=== PATIENT | male | born 1975 | race Caucasian/White ===

== ENCOUNTER 2017-04-02 01:17 | Emergency (ER) | payer SELFPAY ==
[~2017-04-02] VITALS: Ht 182.9 cm; Wt 73.0 kg
[2017-04-02] MEDS ORDERED: LORAZEPAM 2MG/ML CPJ ONE (01:36)
[2017-04-02] MEDS: LORAZEPAM 2MG/ML CPJ IV ONE (01:41)
[2017-04-02] MEDS: SODIUM CHLORIDE 0.9% 1,000 ML IV ONE (01:46)
[2017-04-02 01:56] LABS: BASOPHILS % 0.6 % (0.0-2.0); HEMATOCRIT. 51.1 % (42.0-52.0); HEMOGLOBIN. 16.9 g/dL (14.0-18.0); LYMPHOCYTES % 36.8 % (20.0-50.0); MEAN CORPUSCULAR VOLUME 96.6 fL (80.0-94.0); MEAN PLATELET VOLUME 9.2 fl (7.4-10.4); MONOCYTES % 8.3 % (2.0-8.0); NEUTROPHILS % 49.3 % (40.0-76.0); PLATELET 243 x1000/uL (130-400); RED BLOOD CELL COUNT 5.29 mill/uL (4.7-6.1); RED CELL DISTRIBUTION WIDTH 12.5 % (11.6-14.6)
[2017-04-02 02:15] LABS: CARBON DIOXIDE 12 mEq/L (21-32); CHLORIDE 103 mEq/L (98-107); ETHANOL BLOOD < 10 mg/dL
[2017-04-02 02:21] LABS: CARBAMAZEPINE < 0.5 ug/mL (4-12); PHENOBARBITAL < 2.1 ug/mL (15.0-40.0); VALPROIC ACID < 3.0 ug/mL (50-100)
[2017-04-02] MEDS: LEVETIRACETAM 1,000 MG in SODIUM CHLORIDE 0.9% 100 ML IV ONE (02:57)
[2017-04-02 02:58] VITALS: BP 122/70
== END 2017-04-02 03:00 | disposition left against medical advice (07) ==
LOC: ER 01:17 → CANBEDREQ 07:24
DX: R56.9 Unspecified convulsions (principal)
CPT/HCPCS: 36415; 70450; 80053; 80156; 80165; 80184; 80185; 84443; 85025; 96361; 96374; 99285; G0482; J1953; J2060; J7030; J7050